=== PATIENT | male | born 1950 | race Caucasian/White ===

== ENCOUNTER 2017-04-16 04:00 | Emergency (ER) | payer OTHER ==
[~2017-04-16] VITALS: Ht 167.6 cm; Wt 76.2 kg
[~2017-04-16 04:00] MED LIST: ACETAMINOPHEN-1 EAC1 PO; ASPIRIN; COLACE100 MG PO; CYCLOBENZAPRINE5 MG; ECOTRIN325 MG PO; GABAPENTIN 100100 MG; LANTUS100 UNIT/M SUBQ; METFORMIN HCL500 MG PO; MIRALAX17 GM PO; NAPROSYN500 MG PO; PAXIL10 MG PO; PERCOCET 5-3251 EACH PO; POLYSACCHARIDE150 M1 PO; PRINIVIL20 MG PO; PROTONIX40 M1 PO; PROZAC20 MG PO; SYNTHROID125 MC1; TOUJEO SOL300 UNIT/1 SUBQ; TRAZODONE HCL50 MG PO; TYLENOL325 MG PO
[2017-04-16] MEDS ORDERED: HYDROCHLOROTHIA25 M2 PO (04:13)
[2017-04-16 04:26] LABS: ABSOLUTE EOSINOPHILS 0.3 thou/uL (0.0-0.7); ABSOLUTE LYMPHOCYTES 1.3 thou/uL (0.8-5.3); ABSOLUTE MONOCYTES 0.6 thou/uL (0.0-1.2); ABSOLUTE NEUTROPHILS 4.2 thou/uL (1.6-8.1); BASOPHILS 0.6 %; HEMATOCRIT 35.7 % (42.0-52.0); MCH 28.2 pg (26.0-34.0); MCHC 33.5 g/dL (28.0-37.0); MONOCYTES 8.9 %; MPV 8.3 fl. (7.2-11.1); NUCLEATED RBCS 0 /100WBC; PLATELET COUNT* 239 thou/uL (150-400); POLYS 65.5 %; RBC 4.25 mil/uL (4.50-6.00); RDW-CV 15.6 % (10.5-14.5); WBC 6.4 thou/uL (4.0-11.0)
[2017-04-16 04:46] LABS: ANION GAP 10 mmol/L (7-16); BUN 11 mg/dL (7-18); CALCIUM 8.3 mg/dL (8.5-10.1); CHLORIDE 99 mmol/L (98-107); CO2 27 mmol/L (21-32); CREATININE 1.2 mg/dL (0.6-1.3); GLUCOSE 196 mg/dL (70-99); POTASSIUM 3.3 mmol/L (3.5-5.1); SODIUM 136 mmol/L (136-145)
[2017-04-16 04:52] LABS: ALBUMIN 3.5 g/dL (3.4-5.0); ALKALINE PHOSPHATASE 105 U/L (46-116); LIPASE 196 U/L (73-393); SGOT 14 U/L (15-37); SGPT 16 U/L (30-65); TOTAL BILIRUBIN 0.4 mg/dL (<0.1-1.0); TROPONIN-I LEVEL <0.06 ng/mL (<0.06)
[2017-04-16 06:28] LABS: URINE BILIRUBIN NEGATIVE (Negative); URINE BLOOD NEGATIVE (Negative); URINE CLARITY CLEAR; URINE COLOR YELLOW; URINE GLUCOSE-RANDOM NEGATIVE (Negative); URINE KETONES NEGATIVE (Negative); URINE LEUKOCYTES-REFLEX NEGATIVE (Negative); URINE NITRITE-REFLEX NEGATIVE (Negative); URINE PROTEIN NEGATIVE (Negative); URINE SPECIFIC GRAVITY <= 1.005 (1.005-1.030); URINE UROBILINOGEN 0.2 E.U./dl (0.2-1.0)
[2017-04-16] MEDS ORDERED: CIPRO500 MG PO (06:34)
[2017-04-16] MEDS ORDERED: FLAGYL500 MG PO (06:34)
[2017-04-16] MEDS ORDERED: ONDANSETRON HCL4 M2 PO (06:34)
[2017-04-16] MEDS ORDERED: NORCO 5-325 TA1 EACH PO (06:34)
[2017-04-16 06:44] VITALS: BP 144/72
--- NOTE | 2017-04-16 12:13 | EKG ---
[place] [address] ELECTROCARDIOGRAM REPORT Name: IDALIA GROVE Room: [facility]#: [id number] Admission: 04/16/17 Attend Phys: Discharge: 04/16/17 Date of : 46 Report #: [id number] THIS REPORT FOR: //name// [facility] ED Test Date: 2017-04-16 Test Time: 04:08:23 Pat Name: IDALIA GROVE Department: Room: Gender: M Modeling Analyst: JESSICA : 1950 Requested By: Stephen Jones Order Number: [id number] MD: Milo Martin Measurements Intervals [place] Rate: 77 P: 39 SC: 148 QRS: -10 QRSD: 101 T: 40 QT: 418 QTc: 474 Interpretive Statements Sinus rhythm Borderline repolarization abnormality Baseline wander in lead(s) V6 Compared to ECG 09/10/2016 23:57:43 Ventricular premature complex(es) no longer present T-wave abnormality no longer present Possible ischemia no longer present Electronically Signed On 04-16-2017 12:13:30 MANGLE CATCHER by Milo Martin [email or web address] <ELECTRONICALLY SIGNED> By: Milo Martin MD, FAC 04/16/17 1213 [id number] Milo Martin MD, [facility] /EPI
== END 2017-04-16 06:49 | disposition home or self-care (01) ==
LOC: M.ERS 04:00
PROVIDERS: Emergency Medicine Emergency Medical Services
DX: K52.9 Noninfective gastroenteritis and colitis, unspecified (principal); R06.02 Shortness of breath; R10.9 Unspecified abdominal pain; E03.9 Hypothyroidism, unspecified; I10 Essential (primary) hypertension; E11.9 Type 2 diabetes mellitus without complications; F32.9 Major depressive disorder, single episode, unspecified; Z96.651 Presence of right artificial knee joint

== ENCOUNTER 2017-04-27 13:30 | Emergency (ER) | payer OTHER ==
[~2017-04-27] VITALS: Ht 167.6 cm; Wt 74.4 kg
[~2017-04-27 13:30] MED LIST changes: +CIPRO500 MG PO; +FLAGYL500 MG PO; +HYDROCHLOROTHIA25 M2 PO; +NORCO 5-325 TA1 EACH PO; +ONDANSETRON HCL4 M2 PO
[2017-04-27 14:48] LABS: ABSOLUTE EOSINOPHILS 0.1 thou/uL (0.0-0.7); ABSOLUTE LYMPHOCYTES 1.3 thou/uL (0.8-5.3); ABSOLUTE MONOCYTES 0.5 thou/uL (0.0-1.2); ABSOLUTE NEUTROPHILS 6.3 thou/uL (1.6-8.1); BASOPHILS 0.3 %; EOSINOPHILS 0.8 %; HEMOGLOBIN 12.8 gm/dL (14.0-18.0); LYMPHOCYTES 15.9 %; MCH 27.8 pg (26.0-34.0); MCHC 32.9 g/dL (28.0-37.0); MCV 84.4 fL (80.0-100.0); MONOCYTES 6.3 %; MPV 7.9 fl. (7.2-11.1); NUCLEATED RBCS 0 /100WBC; PLATELET COUNT* 312 thou/uL (150-400); POLYS 76.7 %; RBC 4.62 mil/uL (4.50-6.00); RDW-CV 15.9 % (10.5-14.5); WBC 8.2 thou/uL (4.0-11.0)
[2017-04-27 14:49] LABS: URINE BILIRUBIN NEGATIVE (Negative); URINE BLOOD NEGATIVE (Negative); URINE CLARITY CLEAR; URINE COLOR YELLOW; URINE GLUCOSE-RANDOM NEGATIVE (Negative); URINE KETONES TRACE (Negative); URINE LEUKOCYTES-REFLEX NEGATIVE (Negative); URINE NITRITE-REFLEX NEGATIVE (Negative); URINE PROTEIN NEGATIVE (Negative); URINE SPECIFIC GRAVITY 1.015 (1.005-1.030); URINE UROBILINOGEN 0.2 E.U./dl (0.2-1.0)
[2017-04-27 14:56] LABS: ANION GAP 10 mmol/L (7-16); BUN 9 mg/dL (7-18); CALCIUM 8.5 mg/dL (8.5-10.1); CHLORIDE 93 mmol/L (98-107); CO2 26 mmol/L (21-32); CREATININE 1.2 mg/dL (0.6-1.3); GLUCOSE 96 mg/dL (70-99); POTASSIUM 3.3 mmol/L (3.5-5.1); SODIUM 129 mmol/L (136-145)
[2017-04-27 15:03] LABS: ALBUMIN 4.2 g/dL (3.4-5.0); ALKALINE PHOSPHATASE 99 U/L (46-116); LIPASE 187 U/L (73-393); SGOT 25 U/L (15-37); SGPT 22 U/L (30-65); TOTAL BILIRUBIN 0.7 mg/dL (<0.1-1.0); TROPONIN-I LEVEL <0.06 ng/mL (<0.06)
[2017-04-27] MEDS ORDERED: PROTONIX40 M1 PO (15:51)
[2017-04-27] MEDS ORDERED: CARAFATE 1 GM TA1 G1 PO (15:51)
[2017-04-27 16:01] VITALS: BP 162/77
--- NOTE | 2017-04-28 17:15 | EKG ---
[place] [address] ELECTROCARDIOGRAM REPORT Name: IDALIA GROVE Room: [facility]#: [id number] Admission: 04/27/17 Attend Phys: Discharge: 04/27/17 Date of : 46 Report #: [id number] THIS REPORT FOR: //name// [facility] ED Test Date: 2017-04-27 Test Time: 14:40:14 Pat Name: IDALIA GROVE Department: Room: Gender: M Cost Estimator: Patricia CARL : 1950 Requested By: González Rizvi Order Number: [id number] MD: Red Shields Measurements Intervals [place] Rate: 68 P: 30 ND: 161 QRS: 2 QRSD: 99 T: 38 QT: 435 QTc: 463 Interpretive Statements Sinus rhythm Abnormal R-wave progression, early transition Minimal ST depression, anterolateral leads Compared to ECG 04/16/2017 04:08:23 ST (T wave) deviation now present Electronically Signed On 04-28-2017 17:15:09 DIGITAL DEVELOPER by Red Shields [email or web address] <ELECTRONICALLY SIGNED> By: Red Shields MD, [facility] 04/28/17 1715 1440 1440 Red Shields MD, [facility] /EPI
== END 2017-04-27 16:02 | disposition home or self-care (01) ==
LOC: M.ERS 13:30
PROVIDERS: Physician Assistant
DX: R10.13 Epigastric pain (principal); E87.1 Hypo-osmolality and hyponatremia; E03.9 Hypothyroidism, unspecified; I10 Essential (primary) hypertension; E11.9 Type 2 diabetes mellitus without complications; F32.9 Major depressive disorder, single episode, unspecified; Z79.4 Long term (current) use of insulin; Z87.11 Personal history of peptic ulcer disease; Z96.651 Presence of right artificial knee joint

== ENCOUNTER → 2017-08-05 | Outpatient (CLI) | payer OTHER ==
[~2017-08-05] MED LIST changes: +ASPIRIN EC81 M1; +CARAFATE 1 GM TA1 G1 PO; +TOUJEO SOL300 UNIT/1
[2017-08-05 14:33] LABS: ABSOLUTE EOSINOPHILS 0.1 thou/uL (0.0-0.7); ABSOLUTE LYMPHOCYTES 1.1 thou/uL (0.8-5.3); ABSOLUTE MONOCYTES 0.4 thou/uL (0.0-1.2); ABSOLUTE NEUTROPHILS 4.7 thou/uL (1.6-8.1); BASOPHILS 0.3 %; EOSINOPHILS 1.2 %; HEMATOCRIT 38.1 % (42.0-52.0); HEMOGLOBIN 12.5 gm/dL (14.0-18.0); MCH 28.2 pg (26.0-34.0); MCHC 32.9 g/dL (28.0-37.0); MCV 85.7 fL (80.0-100.0); MONOCYTES 6.8 %; MPV 7.7 fl. (7.2-11.1); NUCLEATED RBCS 0 /100WBC; PLATELET COUNT* 272 thou/uL (150-400); POLYS 74.7 %; RBC 4.44 mil/uL (4.50-6.00); RDW-CV 14.9 % (10.5-14.5); WBC 6.3 thou/uL (4.0-11.0)
[2017-08-05 14:49] LABS: ALBUMIN 3.6 g/dL (3.4-5.0); CALCIUM 7.8 mg/dL (8.5-10.1); CREATININE 1.2 mg/dL (0.6-1.3); MAGNESIUM 1.9 mg/dL (1.8-2.4); POTASSIUM 3.4 mmol/L (3.5-5.1); TOTAL BILIRUBIN 0.6 mg/dL (<0.1-1.0); TOTAL PROTEIN 7.1 g/dL (6.4-8.2)
== END ==
LOC: M.CT 14:00
PROVIDERS: Internal Medicine
DX: K76.0 Fatty (change of) liver, not elsewhere classified (principal); N28.1 Cyst of kidney, acquired; N40.1 Benign prostatic hyperplasia with lower urinary tract symptoms

== ENCOUNTER 2017-09-13 04:15 | Emergency (ER) | payer OTHER ==
[~2017-09-13] VITALS: Ht 167.6 cm; Wt 74.8 kg
[~2017-09-13 04:15] MED LIST changes: -ASPIRIN EC81 M1; -TOUJEO SOL300 UNIT/1
[2017-09-13] MEDS ORDERED: ASPIRIN EC81 M1 (04:35)
[2017-09-13] MEDS ORDERED: TOUJEO SOL300 UNIT/1 (04:37)
[2017-09-13 04:42] LABS: ABSOLUTE BASOPHILS 0.1 thou/uL (0.0-0.2); ABSOLUTE EOSINOPHILS 0.2 thou/uL (0.0-0.7); ABSOLUTE LYMPHOCYTES 1.2 thou/uL (0.8-5.3); ABSOLUTE MONOCYTES 0.5 thou/uL (0.0-1.2); ABSOLUTE NEUTROPHILS 4.7 thou/uL (1.6-8.1); EOSINOPHILS 3.1 %; HEMATOCRIT 36.5 % (42.0-52.0); HEMOGLOBIN 12.2 gm/dL (14.0-18.0); LYMPHOCYTES 18.1 %; MCH 28.7 pg (26.0-34.0); MCHC 33.4 g/dL (28.0-37.0); MONOCYTES 7.8 %; MPV 7.8 fl. (7.2-11.1); NUCLEATED RBCS 0 /100WBC; PLATELET COUNT* 288 thou/uL (150-400); RBC 4.24 mil/uL (4.50-6.00); RDW-CV 15.5 % (10.5-14.5); WBC 6.7 thou/uL (4.0-11.0)
[2017-09-13 04:52] LABS: ANION GAP 7 mmol/L (7-16); BUN 16 mg/dL (7-18); CALCIUM 8.4 mg/dL (8.5-10.1); CHLORIDE 100 mmol/L (98-107); CO2 28 mmol/L (21-32); CREATININE 1.3 mg/dL (0.6-1.3); GLUCOSE 186 mg/dL (70-99); POTASSIUM 4.1 mmol/L (3.5-5.1); SODIUM 135 mmol/L (136-145)
[2017-09-13 04:59] LABS: ALBUMIN 3.4 g/dL (3.4-5.0); ALKALINE PHOSPHATASE 127 U/L (46-116); SGOT 15 U/L (15-37); SGPT 26 U/L (30-65); TOTAL BILIRUBIN 0.3 mg/dL (<0.1-1.0); TOTAL PROTEIN 6.8 g/dL (6.4-8.2); TROPONIN-I LEVEL <0.06 ng/mL (<0.06)
[2017-09-13 07:04] VITALS: BP 186/86
== END 2017-09-13 07:11 | disposition short-term general hospital (02) ==
LOC: M.ERS 04:15
PROVIDERS: Emergency Medicine
DX: I62.00 Nontraumatic subdural hemorrhage, unspecified (principal); E03.9 Hypothyroidism, unspecified; I10 Essential (primary) hypertension; E11.9 Type 2 diabetes mellitus without complications; F32.9 Major depressive disorder, single episode, unspecified; F41.9 Anxiety disorder, unspecified; Z79.4 Long term (current) use of insulin

== ENCOUNTER → 2017-09-28 | Outpatient (CLI) | payer OTHER ==
[~2017-09-28] MED LIST changes: +ASPIRIN EC81 M1; +TOUJEO SOL300 UNIT/1
== END ==
LOC: M.CT 13:00
DX: I10 Essential (primary) hypertension (principal); I62.00 Nontraumatic subdural hemorrhage, unspecified; I67.2 Cerebral atherosclerosis; I67.82 Cerebral ischemia; W19.XXXD Unspecified fall, subsequent encounter

== ENCOUNTER → 2018-12-05 | Outpatient (CLI) | payer OTHER | LOC: M.RAD 14:41 | DX: M25.571 Pain in right ankle and joints of right foot (principal) ==

== ENCOUNTER → 2019-05-09 | Outpatient (CLI) | payer MEDICARE | LOC: M.MRI 08:30 | DX: M47.812 Spondylosis without myelopathy or radiculopathy, cervical region (principal); M53.82 Other specified dorsopathies, cervical region; K21.9 Gastro-esophageal reflux disease without esophagitis; E11.9 Type 2 diabetes mellitus without complications; I10 Essential (primary) hypertension; G44.309 Post-traumatic headache, unspecified, not intractable; M25.78 Osteophyte, vertebrae; M50.320 Other cervical disc degeneration, mid-cervical region, unspecified level; Z79.4 Long term (current) use of insulin; W19.XXXA Unspecified fall, initial encounter ==

== ENCOUNTER → 2019-11-01 | Outpatient (CLI) | payer MEDICARE | LOC: M.ULTRA 09:17 | PROVIDERS: ATTEND Family Medicine | DX: N28.1 Cyst of kidney, acquired (principal); N28.9 Disorder of kidney and ureter, unspecified; I10 Essential (primary) hypertension ==